=== PATIENT | female | born 2000 | race Caucasian/White ===

== ENCOUNTER 2019-02-14 20:26 | Emergency (ER) | payer OTHER ==
[2019-02-14] MEDS ORDERED: PREDNISONE 20 MG TABLET PO ONE (20:58)
[2019-02-14] MEDS ORDERED: FAMOTIDINE 20 MG TABLET PO ONE (20:58)
--- NOTE | 2019-02-14 21:01 | ER Document Report ---
ED Medical Screen (RME) - General Chief Complaint: Numbness of Face Stated Complaint: POSS ALLERGIC REACTION Time Seen by Provider: 02/14/19 20:54 Mode of Arrival: Ambulatory Information source: Patient Notes: Patient is a 19-year-old female with history of allergy to dust mites he reports immediate onset of numbness and tingling to her bilateral hands up to her elbows that started right after she touched a heavy vacuum bag. She also reports a scratchiness in her throat. She is speaking full and complete sentences and swallowing without difficulty. She has never had anaphylaxis in the past. She has no hives. Patient does have an infant with her and she drove here tonight. Will hold off on ordering Benadryl due to that as well as the fact that she does not appear to be in an acute allergic reaction. Exam: PHYSICAL EXAMINATION: GENERAL: Well-appearing, well-nourished and in no acute distress. HEAD: Atraumatic, normocephalic. EYES: Pupils equal round extraocular movements intact, conjunctiva are normal. ENT: Nares patent, oropharynx clear without evidence of any compromise. NECK: Normal range of motion LUNGS: No respiratory distress Musculoskeletal: Normal range of motion NEUROLOGICAL: Normal speech, normal gait. PSYCH: Normal mood, normal affect. SKIN: Warm, Dry, normal turgor, no rashes or lesions noted. TRAVEL OUTSIDE OF THE [place] IN LAST 30 DAYS: No - Related Data Allergies/Adverse Reactions: No Known Allergies Allergy (Verified 02/14/19 20:29) Past Medical History Renal/ Medical History: Denies: Hx Peritoneal Dialysis Physical Exam - Vital signs Vitals: Temp Pulse Resp BP Pulse Ox 97.5 F 87 16 117/62 98 02/14/19 20:31 02/14/19 20:31 02/14/19 20:31 02/14/19 20:31 02/14/19 20:31 Course - Vital Signs Vital signs: Temp Pulse Resp BP Pulse Ox 97.5 F 87 16 117/62 98 02/14/19 20:31 02/14/19 20:31 02/14/19 20:31 02/14/19 20:31 02/14/19 20:31
[2019-02-14] MEDS ORDERED: DIPHENHYDRAMINE HCL 25 MG CAPSULE PO ONE (22:57)
--- NOTE | 2019-02-14 23:01 | ER Document Report ---
ED General - General Chief Complaint: Numbness of Face Stated Complaint: POSS ALLERGIC REACTION Time Seen by Provider: 02/14/19 20:54 Mode of Arrival: Ambulatory Information source: Patient TRAVEL OUTSIDE OF THE [place] IN LAST 30 DAYS: No - HPI Patient complains to provider of: Possible allergic reaction to dust mites Onset: Other - 5-6 hours ago Onset/Duration: Sudden Severity: Mild Pain Level: 2 Associated symptoms: None Exacerbated by: Denies Relieved by: Denies Similar symptoms previously: No Recently seen / treated by doctor: No Notes: 19-year-old female states that about 6 hours ago, she was changing out a filter in a vacuum stitch cleaner and immediately started having redness and itching in her hands and then numbness in her hands and then a tightness in her throat. She says as a child, she was diagnosed with dust mite allergies. Has not had a reaction until now. Difficulty swallowing when this occurred. No history of anaphylaxis. - Related Data Allergies/Adverse Reactions: No Known Allergies Allergy (Verified 02/14/19 20:29) Past Medical History - General Information source: Patient - Social History Smoking Status: Never Smoker Family History: Reviewed & Not Pertinent Patient has suicidal ideation: No Patient has homicidal ideation: No Renal/ Medical History: Denies: Hx Peritoneal Dialysis Review of Systems - Review of Systems Notes: Constitutional: No fevers. No chills. EENT: No eye redness. No eye pain. No ear pain. No sore throat. Positive for tightness in the throat Cardiovascular: No chest pain. No palpitations. Respiratory: No cough. No shortness of breath. No respiratory distress. Gastrointestinal: No abdominal pain. No nausea, vomiting, or diarrhea. Genitourinary: Atraumatic. No lesions. No pain. No discharge. Musculoskeletal: Atraumatic. No swelling. No deformities. Skin: Positive for tingling in hands/red rash Lymphatic: No swollen lymph nodes. Neurologic: No headache. No syncope. Psychiatric: No suicidal or homicidal ideation. Physical Exam - Vital signs Vitals: Temp Pulse Resp BP Pulse Ox 97.5 F 87 16 117/62 98 02/14/19 20:31 02/14/19 20:31 02/14/19 20:31 02/14/19 20:31 02/14/19 20:31 - Notes Notes: General: Well-developed, well-nourished. In no acute distress. Non-toxic appearing. Cardiac: Well-perfused. Regular rate and rhythm. No murmurs, rubs, or gallops. Pulmonary: No respiratory distress. No cyanosis. Bilateral lung fiels are clear to auscultation. Abdominal: Non-distended. Non-rigid. Bowels sounds are present in all four quadrants. No guarding or rebound. HEENT: Head is atraumatic. Conjunctivae not reddened. No tearing. PERRL. EOMI. Orbits atraumatic. No periorbital swelling or erythema. Oropharynx is without erythema, swelling, or exudates. Neck: Supple. No adenopathy. No meningismus. Dermatologic: Warm with good turgor. No rash. Atraumatic. Chest: Atraumatic. No chest wall tenderness to palpation. Musculoskeletal: Moves all extremities well. No range of motion deficits. no muscular or joint tenderness. No paraspinal muscle tenderness. no midline spinal tenderness or step-off. Genitourinary: Examination deferred Neurologic: No gross neurologic deficits. Psychiatric: Normal mood. Course - Vital Signs Vital signs: Temp Pulse Resp BP Pulse Ox 97.5 F 87 16 117/62 98 02/14/19 20:31 02/14/19 20:31 02/14/19 20:31 02/14/19 20:31 02/14/19 20:31 Discharge - Discharge Clinical Impression: Allergic reaction Qualifiers: Encounter type: initial encounter Qualified Code(s): T78.40XA - Allergy, unspecified, initial encounter Condition: Good Disposition: HOME, SELF-CARE Instructions: Acute Allergic Reaction ([facility]) Additional Instructions: Return to ED if medications do not seem to be helping Prescriptions: Fexofenadine HCl [Allyson] 180 mg PO DAILY #5 tablet Prednisone [Deltasone 20 mg Tablet] 2 tab PO DAILY 5 Days #10 tablet Referrals: [facility] [Provider Group] - 02/16/19
[2019-02-14 23:50] VITALS: BP 115/64
== END 2019-02-14 23:50 | disposition home or self-care (01) ==
LOC: ER 20:26
DX: T78.40XA Allergy, unspecified, initial encounter (principal); R20.2 Paresthesia of skin; R20.0 Anesthesia of skin; R09.89 Other specified symptoms and signs involving the circulatory and respiratory systems; X58.XXXA Exposure to other specified factors, initial encounter; Z91.038 Other insect allergy status
CPT/HCPCS: 99283; J7512